=== PATIENT | female | born 1975 | race Caucasian/White ===

== ENCOUNTER 2016-11-04 22:05 | Emergency (ER) | payer OTHER ==
[2016-11-04 22:06] VITALS: BMI 32.4
[2016-11-04 22:23] VITALS: RESP 16; TEMP 97.8; O2SAT 100
--- NOTE | 2016-11-04 22:54 | ED PDOC ---
HPI: Female Pain Time Seen by Provider: 11/04/16 22:27 Chief Complaint (Nursing): Female Genitourinary Chief Complaint (Provider): Vaginal bleeding History Per: Patient History/Exam Limitations: no limitations Onset/Duration Of Symptoms: Mins (20) Current Symptoms Are (Timing): Still Present Severity: Mild Pain Scale Rating Of: 2 Quality Of Discomfort: Unable To Describe Associated Symptoms: denies: Fever, Chills, Nausea, Vomiting, Diarrhea, Loss Of Appetite, Back Pain, Chest Pain, Constipation, Urinary Symptoms Additional Complaint(s): 40 year old female w/ medical history of IDDM presents to ED for evaluation of vaginal bleeding. Patient states she noted blood when she wiped herself after urinating 20 mins [employer]. Patient states blood has continued to be present on toilet paper, though denies continuous flow of bleeding or clots passed. Patient states diffuse abdominal discomfort that is mild and hard to describe. Denies nausea, vomiting, fever, chills, dysuria, diarrhea, constipation, trauma, headache, or chest pain. OBGYN: Dr. Minerva Swain Abnormal Vaginal Bleeding: Yes Last Menstral Period: 7 wks ago : 4 Para: 2 Miscarriage: 1 Past Medical History Reviewed: Historical Data, Nursing Documentation, Vital Signs Vital Signs: Last Vital Signs Temp 97.8 F 11/04/16 22:20 Pulse 98 H 11/04/16 22:20 Resp 16 11/04/16 22:20 BP 127/93 H 11/04/16 22:20 Pulse Ox 100 11/04/16 22:20 - Medical History PMH: Diabetes, Gastritis, Hypercholesterolemia, Sleep Apnea - Surgical History Surgical History: Endoscopy, (2) - Family History Family History: States: Unknown Family Hx - Immunization History Hx Tetanus Toxoid Vaccination: No Hx Influenza Vaccination: No Hx Pneumococcal Vaccination: No - Home Medications Home Medications: Ambulatory Orders Medication Instructions Recorded Metformin HCl 500 mg PO BID 10/12/14 Simvastatin 20 mg PO DAILY 10/12/14 Ergocalciferol (Vitamin D2) 50,000 iu PO QWK 10/19/14 [Vitamin D] Metoclopramide [Reglan] 5 mg PO TID 02/14/16 Pantoprazole Sodium [Protonix] 40 mg PO DAILY 02/14/16 Cephalexin [Keflex] 500 mg PO TID #21 capsule 04/24/16 Docusate [Colace] 100 mg PO BID #90 cap 04/24/16 Ibuprofen [Motrin Tab] 800 mg PO Q6 PRN #30 tab 04/24/16 oxyCODONE/Acetaminophen [Percocet 1 ea PO Q6 PRN #40 tab 04/24/16 5/325 mg Tab] - Allergies Allergies/Adverse Reactions: Allergies Allergy/AdvReac Type Severity Reaction Status Date / Time No Known Allergies Allergy Verified 02/14/16 07:58 Review of Systems ROS Statement: Except As Marked, All Systems Reviewed And Found Negative Constitutional: Negative for: Fever, Chills, Sweats Cardiovascular: Negative for: Chest Pain, Palpitations Respiratory: Negative for: Cough, Shortness of Breath Gastrointestinal: Positive for: Abdominal Pain. Negative for: Nausea, Vomiting , Diarrhea, Constipation Genitourinary Female: Negative for: Dysuria, Frequency Skin: Negative for: Rash Neurological: Negative for: Dizziness Physical Exam - Reviewed Nursing Documentation Reviewed: Yes Vital Signs Reviewed: Yes - Physical Exam Appears: Positive for: Well, Non-toxic, No Acute Distress Head Exam: Positive for: ATRAUMATIC, NORMAL INSPECTION, NORMOCEPHALIC Skin: Positive for: Normal Color, Warm, Dry Eye Exam: Positive for: Normal appearance, EOMI, PERRL ENT: Positive for: Normal ENT Inspection Neck: Positive for: Normal, Painless ROM, Supple Cardiovascular/Chest: Positive for: Regular Rate, Rhythm Respiratory: Positive for: Normal Breath Sounds Gastrointestinal/Abdominal: Positive for: Normal Exam, Bowel Sounds (present, normal), Soft. Negative for: Tenderness Back: Positive for: Normal Inspection. Negative for: L CVA Tenderness, R CVA Tenderness Extremity: Positive for: Normal ROM. Negative for: Tenderness Neurologic/Psych: Positive for: Alert, roller inspector II-XII, Oriented - Laboratory Results Result Diagrams: 11/04/16 23:04 11/04/16 23:04 Urine POC: Positive Urine dip results: Positive for: Blood, Glucose - ECG O2 Sat by Pulse Oximetry: 100 Pulse Ox Interpretation: Normal - Progress ED Course And Treament: Time: 2226 Initial impression: 40 year old female w/ PMHx of IDDM with vaginal bleed associated with abdominal discomfort x 20 mins. ectopic vs spontaneous Plan: * CBC * CMP * ACCUCHECK * URINE PREG * URINE DIP * BETA HCG QUANTITATIVE * OB ULTRASOUND * TYPE AND SCREEN REVIEWED FROM PREVIOUS CHARTS, O POS RH neg * REEVAL Time: 1250 Labs remarkable for mild leukocytosis. wnl Beta-Hcg Ultrasound impression: Single viable intrauterine of 7 weeks 5 days. The estimated date of date of delivery is June 18, 2017. 2.0x2.2x1.7 CM heterogeneous echotexture lesion in the right ovary. It could represent a corpus luteal cyst with hemorrhage. A mass is considered less likely but not excluded. Nonvisualization of the left ovary. Will discharge patient to home at this time. Bleeding precautions given. Patient to follow up with OBGYN within 48 hours. Pelvic rest encouraged. Return to ED for new/worsening symptoms. Disposition - Clinical Impression Clinical Impression: Abdominal pain in , Threatened miscarriage - Patient ED Disposition Is Patient to be Admitted: No Counseled Patient/Family Regarding: Studies Performed, Diagnosis, Need For Followup - Disposition Referrals: Minerva Swain MD [Medical Doctor] - 11/06/16 Disposition: Routine/Home Disposition Time: 01:00 Condition: STABLE Instructions: Threatened Miscarriage (ED) Print Language: CANADIAN
[2016-11-04 23:08] LABS: BASO # 0.1 K/uL (0.0-0.2); BASO % 0.5 % (0.0-2.0); EOS # 0.1 K/uL (0.0-0.7); EOS % 0.8 % (0.0-4.0); HEMATOCRIT 34.6 % (34.0-47.0); LYMPH % 25.7 % (20.0-40.0); MEAN CELL VOLUME 79.4 fl (81.0-99.0); MEAN CORPUSCULAR HEMOGLOBIN 26.1 pg (27.0-31.0); MEAN CORPUSCULAR HGB CONC 32.9 g/dL (33.0-37.0); MEAN PLATELET VOLUME 7.2 fl (7.2-11.7); MONO # 0.9 K/uL (0.0-0.8); MONO % 7.9 % (0.0-10.0); NEUT # 7.5 K/uL (1.8-7.0); NEUT % 65.1 % (50.0-75.0); NRBC % 0.1 % (0.0-0.0); RED CELL DISTRIBUTION WIDTH 16.7 % (11.5-14.5); WHITE BLOOD COUNT 11.6 K/uL (4.8-10.8)
[2016-11-04 23:16] LABS: ALB/GLOB RATIO 1.3 (1.0-2.1); ALKALINE PHOSPHATASE 61 U/L (38-126); ALT/SGPT 31 U/L (9-52); AST/SGOT 17 U/L (14-36); BILIRUBIN,TOTAL 0.1 mg/dl (0.2-1.3); BLOOD UREA NITROGEN 11 mg/dl (7-17); CALCIUM 9.5 mg/dL (8.4-10.2); CARBON DIOXIDE 22 mmol/L (22-30); CHLORIDE 103 mmol/L (98-107); GFR AFRICAN-AMERICAN > 60; GLUCOSE,RANDOM 141 mg/dL (65-105); SODIUM 135 mmol/l (132-148); TOTAL PROTEIN 7.1 G/DL (6.3-8.2)
[2016-11-05 01:17] VITALS: BP 125/80; PULSE 75
--- NOTE | 2016-11-05 10:43 | US ---
Pelvic ultrasound History: Vaginal bleeding, abdominal pain. Comparison: 08/17/2011. Technique: Transabdominal and transvaginal ultrasonography evaluation of the pelvis. Findings: The uterus measures 10.9 x 7.7 x 6.8 centimeters. The uterus is anteverted. The cervix is closed and measures 4.5 centimeters. Few nabothian cysts noted. Single intrauterine gestational sac with mean sac diameter of 2.9 centimeter. A yolk sac measuring 0.32 centimeters noted. A pole measuring 1.2 centimeters, corresponding to gestational age of 7 weeks 3 days noted. cardiac motion identified. On M-mode imaging common beats per minute: 169. Right ovary measures 2.7 x 2.7 x 1.9 centimeter. A complex oval structure with surrounding vascularity noted within the right ovary, likely an involuting corpus luteum cyst. This measures approximately 2.2 x 2.1 x 1.7 centimeters. Left ovary not visualized. No significant free fluid in the cul-de-sac. Impression: Single intrauterine gestational sac with mean sac diameter of 2.9 centimeter. [place]-rump length measures 1.2 centimeters corresponding to gestational age of 7 weeks 3 days. Possible corpus luteum cyst in the right ovary. Other underlying pathology cannot be entirely excluded. Follow-up evaluation should be obtained in 1 menstrual cycle. Left ovary not visualized. Please note that this report is in general agreement with the preliminary report provided by Barbara.
== END 2016-11-05 01:22 | disposition home or self-care (01) ==
LOC: H.ER 22:05
DX: O20.0 Threatened abortion (principal); R10.2 Pelvic and perineal pain; E11.9 Type 2 diabetes mellitus without complications; Z3A.01 Less than 8 weeks gestation of pregnancy; O20.9 Hemorrhage in early pregnancy, unspecified